=== PATIENT | female | born 1970 | race Caucasian/White ===

== ENCOUNTER → 2022-07-09 | Outpatient (CLI) | payer OTHER ==
[~2022-07-09] MED LIST: TOPCARE OMEPRAZ20 MG PO; ZYRTEC10 M3 PO
== END ==
LOC: AMSURD 09:28
DX: Z48.02 Encounter for removal of sutures (principal)

== ENCOUNTER 2024-03-20 19:59 | Emergency (ER) | payer OTHER ==
[2024-03-20] MEDS ORDERED: ELDERBERRY350 MG PO (20:21)
[2024-03-20] MEDS ORDERED: VITAMIN C PUR1000 MG PO (20:21)
[2024-03-20] MEDS ORDERED: B12 ACTIVE1000 MCG PO (20:21)
[2024-03-20 21:15] VITALS: BP 102/66
== END 2024-03-20 21:17 | disposition home or self-care (01) ==
LOC: ED 19:59
DX: J06.9 Acute upper respiratory infection, unspecified (principal); B09 Unspecified viral infection characterized by skin and mucous membrane lesions

== ENCOUNTER 2024-07-05 16:37 | Emergency (ER) | payer OTHER ==
[~2024-07-05] VITALS: Ht 154.9 cm; Wt 88.6 kg
[~2024-07-05 16:37] MED LIST changes: +B12 ACTIVE1000 MCG PO; +ELDERBERRY350 MG PO; +VITAMIN C PUR1000 MG PO
[2024-07-05 18:09] LABS: BASO # 0.03 K/mm3 (0.02-0.10); EOS # 0.14 K/mm3 (0.04-0.40); EOS % 1.9 % (1.0-5.0); HEMATOCRIT 42.2 % (37.0-47.0); HEMOGLOBIN 13.9 g/dL (12.5-16.0); LYMPH# 2.53 K/mm3 (1.50-4.00); MEAN CELL VOLUME 89 fl (78-100); MEAN CORPUSCULAR HEMOGLOBIN 29 pg (27-31); MEAN CORPUSCULAR HGB CONC 33 g/dL (33-37); MONO # 0.38 K/mm3 (0.20-0.80); NEU # 4.44 K/mm3 (1.40-6.50); PLATELET COUNT 282 K/mm3 (130-400); RED BLOOD COUNT 4.72 M/mm3 (4.10-5.30); RED CELL DISTRIBUTION WIDTH 12.4 % (11.5-14.5); WHITE BLOOD COUNT 7.5 K/mm3 (4.8-10.8)
[2024-07-05] MEDS ORDERED: Lidocaine 4% Topical Patch TP ONE (18:15)
[2024-07-05] MEDS ORDERED: Cyclobenzaprine 10 MG TAB PO ONE (18:15)
[2024-07-05] MEDS ORDERED: Ketorolac 30 MG/ML VIAL IM ONE (18:15)
[2024-07-05 18:16] LABS: ALBUMIN 4.1 g/dL (3.5-5.0)
[2024-07-05 18:17] LABS: SODIUM 140 mmol/L (136-145)
[2024-07-05 18:18] LABS: CALCIUM 9.1 mg/dL (8.3-10.5)
[2024-07-05 18:19] LABS: GLUCOSE 80 mg/dL (65-105); TOTAL PROTEIN 7.2 g/dL (6.4-8.3)
[2024-07-05 18:20] LABS: CARBON DIOXIDE 26 mmol/L (22-29)
[2024-07-05 18:21] LABS: TOTAL BILIRUBIN 0.3 mg/dL (0.2-1.2)
[2024-07-05 18:24] LABS: AST-SGOT 18 U/L (5-34)
[2024-07-05 18:25] LABS: ALT/SGPT 26 U/L (0-55)
[2024-07-05 18:26] LABS: LIPASE 56 U/L (8-78)
[2024-07-05 18:27] LABS: D-DIMER 0.1 mg/L FEU (0.15-0.50)
[2024-07-05 18:32] LABS: TROPONIN-I < 0.030 ng/mL (0.00-0.033)
[2024-07-05] MEDS ORDERED: CYCLOBENZAPRINE10 M1 PO (20:04)
[2024-07-05 20:20] VITALS: BP 124/79
== END 2024-07-05 20:20 | disposition home or self-care (01) ==
LOC: ED 16:37
PROVIDERS: Physician Assistant
DX: M25.511 Pain in right shoulder (principal)
CPT/HCPCS: J1885

== ENCOUNTER 2024-07-05 21:26 | Emergency (ER) | payer OTHER ==
[~2024-07-05] VITALS: Wt 88.6 kg
[~2024-07-05 21:26] MED LIST changes: +CYCLOBENZAPRINE10 M1 PO
[2024-07-05] MEDS ORDERED: fentaNYL 100 MCG/2 ML VIAL IV ONE (21:45)
[2024-07-05] MEDS ORDERED: NS 100 ML IV SCH (21:57)
[2024-07-05 21:58] LABS: BASO # 0.04 K/mm3 (0.02-0.10); EOS # 0.15 K/mm3 (0.04-0.40); EOS % 1.8 % (1.0-5.0); HEMATOCRIT 40.9 % (37.0-47.0); HEMOGLOBIN 13.7 g/dL (12.5-16.0); LYMPH# 3.64 K/mm3 (1.50-4.00); MEAN CELL VOLUME 88 fl (78-100); MEAN CORPUSCULAR HEMOGLOBIN 30 pg (27-31); MEAN CORPUSCULAR HGB CONC 34 g/dL (33-37); MONO # 0.42 K/mm3 (0.20-0.80); NEU # 4.05 K/mm3 (1.40-6.50); PLATELET COUNT 274 K/mm3 (130-400); RED BLOOD COUNT 4.63 M/mm3 (4.10-5.30); RED CELL DISTRIBUTION WIDTH 12.4 % (11.5-14.5); WHITE BLOOD COUNT 8.3 K/mm3 (4.8-10.8)
[2024-07-05] MEDS ORDERED: Iohexol 350 - 100 ML VIAL IV ONE (21:58)
[2024-07-05 22:08] LABS: ALBUMIN 4.1 g/dL (3.5-5.0); SODIUM 140 mmol/L (136-145)
[2024-07-05 22:09] LABS: CALCIUM 9.2 mg/dL (8.3-10.5)
[2024-07-05 22:11] LABS: GLUCOSE 99 mg/dL (65-105)
[2024-07-05 22:12] LABS: CARBON DIOXIDE 22 mmol/L (22-29)
[2024-07-05 22:13] LABS: TOTAL BILIRUBIN 0.3 mg/dL (0.2-1.2)
[2024-07-05 22:16] LABS: AST-SGOT 18 U/L (5-34)
[2024-07-05 22:17] LABS: ALT/SGPT 25 U/L (0-55)
[2024-07-05 22:25] LABS: TROPONIN-I < 0.030 ng/mL (0.00-0.033)
[2024-07-05] MEDS ORDERED: Home HYDROcodone/Acetaminophen 5/325 MG #4 TABS/PACK PO ONE (22:45)
[2024-07-05 22:47] VITALS: BP 130/74
== END 2024-07-05 22:47 | disposition home or self-care (01) ==
LOC: ED 21:26
PROVIDERS: Physician Assistant
DX: M25.511 Pain in right shoulder (principal); M54.6 Pain in thoracic spine
CPT/HCPCS: J3010; Q9967